=== PATIENT | female | born 1985 | race Caucasian/White ===

== ENCOUNTER 2016-05-19 22:55 | Outpatient (CLI) | payer BC ==
[2016-05-22 10:19] LABS: Antinuclear AB Negative (Negative)
== END 2016-05-19 22:56 | disposition home or self-care (01) ==
LOC: MADLAB 22:55
PROVIDERS: ATTEND Family Medicine
DX: M12.9 Arthropathy, unspecified (principal); G35 Multiple sclerosis; Z79.899 Other long term (current) drug therapy
CPT/HCPCS: 36415; 85652; 86038; 86140; 86430